=== PATIENT | female | born 1975 | race Caucasian/White ===

== ENCOUNTER 2018-09-30 | Emergency (ER) | payer SELFPAY ==
[2018-09-30 00:05] VITALS: BMI 26.6
[2018-09-30] MEDS ORDERED: DICLOFENAC SODI50 MG PO (00:55)
[2018-09-30 01:17] VITALS: BP 123/74
== END 2018-09-30 01:19 | disposition home or self-care (01) ==
LOC: D.ER
DX: G89.29 Other chronic pain (principal)